=== PATIENT | female | born 1950 | race Caucasian/White ===

== ENCOUNTER 2024-04-02 08:00 | Emergency (ER) | payer OTHER ==
[~2024-04-02] VITALS: Ht 152.4 cm; Wt 44.9 kg
[2024-04-02] MEDS ORDERED: FLUORESCEIN SODIUM 1 MG STRIP OPH ONE (08:30)
[2024-04-02] MEDS ORDERED: Tetracaine Hydrochloride 0.5% 4 ML BOT OPH ONE (08:30)
[2024-04-02] MEDS ORDERED: ERYTHROMYCIN OPH1 GM OPH (08:55)
== END 2024-04-02 13:16 | disposition home or self-care (01) ==
LOC: ED 08:00
DX: S05.02XA Injury of conjunctiva and corneal abrasion without foreign body, left eye, initial encounter (principal); Z88.0 Allergy status to penicillin; Z88.1 Allergy status to other antibiotic agents; Z88.2 Allergy status to sulfonamides; Z88.8 Allergy status to other drugs, medicaments and biological substances; X58.XXXA Exposure to other specified factors, initial encounter; Y93.89 Activity, other specified; Y92.89 Other specified places as the place of occurrence of the external cause; Y99.8 Other external cause status